=== PATIENT | female | born 1995 | race Caucasian/White ===

== ENCOUNTER → 2021-06-26 15:12 | Outpatient (CLI) | payer OTHER, BC, SELFPAY ==
--- NOTE | ~2021-06-26 | US_ITS ---
EXAMINATION: US OB /maternal detail DATE: 06/26/2021 15:56 INDICATION: anatomic survey. TECHNIQUE: Real-time ultrasound of the pelvis was performed. COMPARISON: None. FINDINGS: There is a single living fetus in breech presentation. The placenta is anterior, 6.9 cm from the cer vix. heart rate is 151 beats per minute (bpm). The amniotic fluid volume is subjectively normal . The following biometric data were obtained: Biparietal diameter (BPD): 4.8 cm; head circumference (HC): 18.7 cm; abdominal circumference (AC): 16 .1 cm; femur length (FL): 3.5 cm. These measurements are concordant. Estimated weight is 404 g +/- 61 g, which correlates with >97th percentile when 11/14/21 is used as estimated date of delivery. As single measurements, these parameters are each equal to the following estimated gestational ages w ith ranges of +/- 2 standard deviations: BPD: 20 weeks 3 days (18 weeks 5 days - 22 weeks 1 days). HC: 21 weeks 0 days (19 weeks 4 days - 22 weeks 3 days). AC: 21 weeks 2 days (19 weeks 1 days - 23 weeks 2 days). FL: 21 weeks 1 days (19 weeks 3 days - 23 weeks 0 days). estimated gestational age based solely on measurements from this exam is 21 weeks 0 days +/- 1 weeks 3 days. The cerebral ventricles, cerebellum, cisterna magna, nuchal fold, and visualized portions of the spin e are normal. The heart is normal. The diaphragm, stomach, kidneys, and bladder are normal. There are two umbilical arteries to yield a 3-vessel cord. The cord insertion is normal. IMPRESSION: 1. Single living fetus in breech presentation. 2. Large for gestational age. Estimated weight is 404 g +/- 61 g, which correlates with >97th percentile when 11/14/21 is used as estimated date of delivery. 3. Normal anatomic survey. Reviewed, dictated and finalized at location A. IMPRESSION: 1. Single living fetus in breech presentation. 2. Large for gestational age. Estimated weight is 404 g +/- 61 g, which correlates with >97th percentile when 11/14/21 is used as estimated date of deljoceline bui. 3. Normal anatomic survey.
== END ==
PROVIDERS: Visit Provider Obstetrics & Gynecology
DX: O36.60X0 Maternal care for excessive fetal growth, unspecified trimester, not applicable or unspecified (principal); Z3A.00 Weeks of gestation of pregnancy not specified
CPT/HCPCS: 76805

== ENCOUNTER → 2021-08-26 10:26 | Outpatient (CLI) | payer OTHER, BC, SELFPAY ==
--- NOTE | ~2021-08-26 | US_ITS ---
EXAMINATION: US OB follow up DATE: 08/26/2021 11:08 INDICATION: Large for gestational age, third trimester TECHNIQUE: Real-time ultrasound of the pelvis was performed. The interpreting radiologist was not pre sent for the study. COMPARISON: 06/26/2021 FINDINGS: There is a single living fetus in breech presentation. The placenta is anterior and 5.2 cm from the internal cervical os. cardiac activity and movement are noted. heart rate is 124 beats per minute (bpm). The amniotic fluid index is 14.9 cm which is normal. The following biometric data were obtained: Biparietal diameter (BPD): 7.2 cm; head circumference (HC): 27.3 cm; abdominal circumference (AC): 25 .7 cm; femur length (FL): 5.4 cm. These measurements are concordant. Estimated weight is 1402 g +/- 210 g, which correlates with the 29th percentile when 11/06/2021 is used as estimated date of delivery. As single measurements, these parameters are each equal to the following estimated gestational ages w ith ranges of +/- 2 standard deviations: BPD: 29 weeks 0 days ( 26 weeks 6 days - 31 weeks 1 days). HC: 29 weeks 6 days ( 27 weeks 6 days - 31 weeks 6 days). AC: 29 weeks 6 days ( 27 weeks 5 days - 32 weeks 0 days). FL: 28 weeks 6 days ( 26 weeks 6 days - 31 weeks 0 days). estimated gestational age based solely on measurements from this exam is 29 weeks 3 days +/- 2 weeks 0 days. IMPRESSION: 1. Single living fetus in breech presentation. 2. Estimated weight is 1402 g +/- 210 g, which correlates with the 29th percentile when 11/06/19 22 is used as estimated date of delivery. 3. Normal amniotic fluid index. Reviewed, dictated and finalized at location B. IMPRESSION: 1. Single living fetus in breech presentation. 2. Estimated weight is 1402 g +/- 210 g, which correlates with the 29th p ercentile when 11/06/2021 is used as estimated date of delivery. 3. Normal amniotic fluid index.
== END ==
PROVIDERS: Visit Provider Obstetrics & Gynecology
DX: O36.62X1 Maternal care for excessive fetal growth, second trimester, fetus 1 (principal); Z3A.29 29 weeks gestation of pregnancy
CPT/HCPCS: 76816

== ENCOUNTER 2021-10-16 17:45 | Outpatient (RCR) | payer OTHER, BC, SELFPAY ==
--- NOTE | ~2021-10-16 | US_ITS ---
EXAMINATION: US OB BPP wo non-stress DATE: 10/16/2021 18:48 INDICATION: Elevated blood pressures during third trimester TECHNIQUE: Real-time pelvic ultrasound was performed. The interpreting radiologist was not present fo r the study. COMPARISON: 08/26/21 FINDINGS: There is a single living fetus in vertex presentation. The placenta is anterior and not low-lying. F etal heart rate is 132 beats per minute (bpm). Biophysical profile performed by the technologist: breathing (30 sec sustained breathing in 30 minutes): 2 out of 2 movement (3 gross body movements in 30 minutes): 2 out of 2 tone (one episode of oqnsdqs-tufvmqzyi-rpswmbl limb movement): 2 out of 2 Amniotic fluid pocket (2 cm): 2 out of 2 Total score: 8 out of 8 IMPRESSION: 1. Single living fetus in vertex presentation with heart rate of 132 bpm. 2. Biophysical profile 8 out of 8. Reviewed, dictated and finalized at location H. ER
[2021-10-16 18:22] LABS: Basophils Absolute Auto 0.1 K/mm3 (0.0-0.1); Basophils Percent Auto 0.4 % (0.2-1.2); Eosinophils Absolute Auto 0.2 K/mm3 (0-0.3); Eosinophils Percent Auto 1.7 % (0-4.4); Hematocrit 32.4 % (37.0-47.0); Hemoglobin 10.3 g/dL (12.0-15.0); Immature Granulocyte Absolute 0.07 K/mm3 (0.00-0.031); Immature Granulocyte Percent A 0.6 % (0-0.5); Lymphocytes Absolute Auto 3.06 K/mm3 (0.9-3.2); Lymphocytes Percent Auto 26.9 % (18.3-44.2); Mean Corpuscular HGB Conc 31.8 g/dl (32-36); Mean Corpuscular Hemoglobin 27.8 pg (26-34); Mean Corpuscular Volume 87.3 fl (80-100); Mean Platelet Volume 9.9 fl (7.4-10.4); Monocytes Absolute Auto 0.9 K/mm3 (0.1-0.6); Monocytes Percent Auto 7.9 % (2.6-8.5); Neutrophils Absolute Auto 7.1 K/mm3 (1.3-6.7); Neutrophils Percent Auto 62.5 % (45.5-73.1); Platelet Count Result 252 k/mm3 (150-375); Red Blood Count 3.71 M/mm3 (4.2-5.4); Red Cell Distribution Width 14.7 % (11.5-14.5); White Blood Count 11.4 K/mm3 (4.5-10.0)
[2021-10-16 18:32] LABS: Alanine Aminotransferase 19 U/L (4-35); Albumin Level 3.4 g/dL (3.5-5.1); Alkaline Phosphatase 196 U/L (38-126); Anion Gap 4 mmol/L (8-16); Aspartate Amino Transferase 31 U/L (14-36); Bilirubin,Total 0.3 mg/dL (0.2-1.3); Blood Urea Nitrogen 9 mg/dL (7-17); Calcium 9.2 mg/dL (8.4-10.2); Carbon Dioxide 23 mmol/L (22-30); Chloride 104 mmol/L (98-107); Estimated Glomerular Filt Rate > 60; Glucose 100 mg/dL (65-110); Potassium 3.7 mmol/L (3.4-5.0); Sodium 131 mmol/L (137-145); Uric Acid 4.2 mg/dL (2.5-7.5)
[2021-10-16 19:24] LABS: Add Urine Microscopic? YES; Amorphous Sediment Urine Few; Appearance Urine Clear (Clear); Bacteria Urine 1+ /hpf; Bilirubin Urine Negative (Negative); Blood Urine 1+ (Negative); Color Urine Yellow (Yellow); Creatinine Urine 75.6 mg/dL; Glucose Urine UA Negative (Negative); Ketones Urine Trace mg/dL (Negative); Leukocyte Esterase Ur Trace LEU/UL (NEGATIVE); Mucus Urine Rare /lpf; Nitrate Urine Negative (Negative); Protein Urine Negative (Negative); Specific Grav Ur 1.011 (1.001-1.035); Squamous Epithelial Cell Urine Rare /hpf (Few); Total Protein Urine Random 19 mg/dL; Ur Ttl Prot Creatinine Ratio 0.25 mg/mg (0-0.20); Urobilinogen Urine Negative mg/dL (<2.0); WBC Urine 0-3 /hpf (0-3)
== END 2022-01-14 23:59 | disposition home or self-care (01) ==
LOC: ANHOBOP 17:45
PROVIDERS: Visit Provider Obstetrics & Gynecology
DX: O26.899 Other specified pregnancy related conditions, unspecified trimester (principal); R03.0 Elevated blood-pressure reading, without diagnosis of hypertension; Z3A.00 Weeks of gestation of pregnancy not specified
CPT/HCPCS: 36415; 76819; 80053; 81001; 82570; 84156; 84550; 85025; 87086

== ENCOUNTER 2021-11-03 16:56 | Inpatient (IN) | payer OTHER, BC, SELFPAY ==
[2021-10-16 18:53] VITALS: BP 126/73; PULSE 72
[2021-10-16 19:03] VITALS: BP 128/73; PULSE 77
[2021-10-16 19:16] VITALS: BP 112/66; PULSE 82
[2021-10-16 19:31] VITALS: BP 111/57; PULSE 78
[2021-10-16 19:46] VITALS: BP 124/74; PULSE 79
[2021-11-03] VITALS (15 sets, daily range): BP systolic 121–152; BP diastolic 79–92; PULSE 90–110; RESP 16; TEMP 36.9; BMI 36.8
--- NOTE | 2021-11-03 17:36 | LDADM ---
This patient, Yahaira Vega, was admitted to Labor/Delivery/Recovery 107 on 11/03/21 at 16:56. Plans for labor, pain management and were discussed with patient. Patient/family oriented to hospital policies and general routines including ID bracelet, bed and alarms, visiting hours, pain management, procedures, bathroom and other care routines, personal items, smoking policy, room service/diet and guest tray routines, infant security routines, and visiting hours. Patient/Family are encouraged to report perceived risks to care and to ask questions if they do not understand what they are told or what they should do. See OBIX for further documentation.
[2021-11-03 17:37] LABS: Basophils Absolute Auto 0.1 K/mm3 (0.0-0.1); Basophils Percent Auto 0.4 % (0.2-1.2); Eosinophils Absolute Auto 0.2 K/mm3 (0-0.3); Eosinophils Percent Auto 1.7 % (0-4.4); Hematocrit 33.7 % (37.0-47.0); Hemoglobin 10.7 g/dL (12.0-15.0); Immature Granulocyte Absolute 0.11 K/mm3 (0.00-0.031); Lymphocytes Absolute Auto 2.82 K/mm3 (0.9-3.2); Lymphocytes Percent Auto 24.4 % (18.3-44.2); Mean Corpuscular HGB Conc 31.8 g/dl (32-36); Mean Corpuscular Volume 85.1 fl (80-100); Mean Platelet Volume 10.2 fl (7.4-10.4); Monocytes Absolute Auto 1.1 K/mm3 (0.1-0.6); Monocytes Percent Auto 9.2 % (2.6-8.5); Neutrophils Absolute Auto 7.3 K/mm3 (1.3-6.7); Neutrophils Percent Auto 63.3 % (45.5-73.1); Platelet Count Result 270 k/mm3 (150-375); Red Blood Count 3.96 M/mm3 (4.2-5.4); White Blood Count 11.6 K/mm3 (4.5-10.0)
[2021-11-03] MEDS: DINOPROSTONE 10 MG VAG INSERT VAGINAL (18:03)
[2021-11-04] VITALS (208 sets, daily range): BP systolic 67–145; BP diastolic 31–100; PULSE 29–197; RESP 16; TEMP 36.6–37.6; O2SAT 90–100
[2021-11-04] MEDS: ACETAMINOPHEN 500 MG TABLET 1000 MG PO (01:53)
[2021-11-04] MEDS: FAMOTIDINE 20 MG TABLET PO ×2 (01:53→23:34)
[2021-11-04] MEDS: OXYTOCIN 30 UNITS/NS 500 ML 30 UNITS/500 ML BAG 6 UNITS IV CONT (06:51)
[2021-11-04] MEDS: LACTATED RINGERS 1,000 ML 125 ML IV CONT ×2 (06:51→13:51)
--- NOTE | 2021-11-04 07:36 | PM.IMHP ---
H&P: HPI History of Present Illness Date/Time: 11/04/21 07:22 Yahaira is a 25yo @39.1wks who was admitted for elective induction of labor. She reports no VB or LOF. Has been having irregular contractions. She has had regular care. Her is complicated by: - Rubella, varicella, CMV, parvo non-immune - Mild anemia on iron daily - Anxiety and depression - Headaches - Mild intermittent asthma Chief Complaint: induction of labor Review of Systems Review of Systems: All systems reviewed & are unremarkable except as noted in HPI and below (HPI) [facility] Family History Family History Grandparent Diabetes mellitus Hypertension Social History Social History Smoking status: Never smoker Substance use: never Spiritual care concerns: No Meds Home Medications and Allergies Home Medications Medication Instructions Recorded Confirmed Type PNV cmb#95-ferrous fumarate-FA 1 tablet PO HS 11/03/21 11/03/21 History [] doxylamine succinate [Wal-Randy 25 mg PO HS 11/03/21 11/03/21 History (doxylamine)] famotidine [Pepcid] 20 mg PO HS 11/03/21 11/03/21 History Allergies Allergy/AdvReac Type Severity Reaction Status Date / Time morphine Allergy Rash Verified 10/14/21 15:40 Vital Signs Vital Signs - 24 hr 11/03/21 17:21 11/03/21 17:32 11/03/21 17:46 Temperature Pulse Rate 105 H 110 H 103 H Respiratory Rate Blood Pressure 132/86 123/86 121/81 Pulse Oximetry 11/03/21 18:05 11/03/21 18:15 11/03/21 18:16 Temperature 98.4 F Pulse Rate 104 H 110 H Respiratory Rate Blood Pressure 152/92 H Pulse Oximetry 11/03/21 18:19 11/03/21 18:31 11/03/21 18:46 Temperature Pulse Rate 108 H 99 101 H Respiratory Rate Blood Pressure 132/82 127/79 130/85 Pulse Oximetry 11/03/21 19:01 11/03/21 19:16 11/03/21 19:31 Temperature Pulse Rate 96 96 99 Respiratory Rate Blood Pressure 123/82 129/80 126/89 Pulse Oximetry 11/03/21 19:46 11/03/21 20:01 11/03/21 20:02 Temperature 98.4 F Pulse Rate 104 H 90 Respiratory Rate 16 Blood Pressure 128/87 136/86 Pulse Oximetry 11/04/21 00:03 11/04/21 00:04 11/04/21 00:08 Temperature Pulse Rate 91 Respiratory Rate Blood Pressure 139/79 Pulse Oximetry 99 98 11/04/21 00:13 11/04/21 00:30 11/04/21 00:35 Temperature Pulse Rate Respiratory Rate Blood Pressure Pulse Oximetry 99 99 99 11/04/21 00:40 11/04/21 00:42 11/04/21 00:47 Temperature Pulse Rate Respiratory Rate Blood Pressure Pulse Oximetry 99 98 99 11/04/21 00:52 11/04/21 00:57 11/04/21 01:02 Temperature Pulse Rate Respiratory Rate Blood Pressure Pulse Oximetry 99 98 98 11/04/21 01:07 11/04/21 01:12 11/04/21 01:17 Temperature Pulse Rate Respiratory Rate Blood Pressure Pulse Oximetry 99 98 98 11/04/21 01:22 11/04/21 01:27 11/04/21 01:32 Temperature Pulse Rate Respiratory Rate Blood Pressure Pulse Oximetry 99 98 99 11/04/21 01:34 11/04/21 01:37 11/04/21 01:38 Temperature Pulse Rate 81 Respiratory Rate Blood Pressure 99/59 L Pulse Oximetry 98 100 99 11/04/21 01:41 11/04/21 01:43 11/04/21 01:44 Temperature Pulse Rate 83 Respiratory Rate Blood Pressure 112/61 Pulse Oximetry 99 98 11/04/21 01:49 11/04/21 01:51 11/04/21 01:53 Temperature 97.9 F Pulse Rate 85 Respiratory Rate Blood Pressure 106/60 Pulse Oximetry 98 11/04/21 01:54 11/04/21 01:59 11/04/21 02:01 Temperature Pulse Rate 84 Respiratory Rate Blood Pressure 128/90 Pulse Oximetry 99 100 11/04/21 02:04 11/04/21 02:09 11/04/21 02:11 Temperature Pulse Rate 101 H Respiratory Rate Blood Pressure 119/86 Pulse Oximetry 100 99 11/04/21 02:14 11/04/21 02:19 11/04/21 02:2
--- NOTE | 2021-11-04 07:36 | WPDHPUPDATE1 ---
History and Physical Update Update Date/Time: 11/04/21 07:36 History and Physical has been reviewed, including an updated exam of the patient. There are NO changes in the patient's condition. Risks, benefits, and alternatives have been discussed and questions answered. Patient agrees to proceed with procedure.
[2021-11-04] MEDS: ONDANSETRON INJ 4 MG/2 ML VIAL IV PUSH (07:38)
--- NOTE | 2021-11-04 10:34 | WPDANESEPP ---
Anes - Eval Pre Procedure Date/Time: 11/04/21 10:34 Pre Op Diagnosis: Induction of Labor Patient Data Age: 25 Gender: F Height: 1.83 m Weight: 123 kg Last Vital Signs Temp 36.6 C 11/04/21 08:30 Pulse 99 11/04/21 07:51 Resp 16 11/03/21 20:02 BP 111/74 11/04/21 07:51 Pulse Ox 99 11/04/21 07:54 Allergies Allergy/AdvReac Type Severity Reaction Status Date / Time morphine Allergy Rash Verified 10/14/21 15:40 Home Medications Medication Instructions Recorded Confirmed Type PNV cmb#95-ferrous fumarate-FA 1 tablet PO HS 11/03/21 11/03/21 History [] doxylamine succinate [Wal-Randy 25 mg PO HS 11/03/21 11/03/21 History (doxylamine)] famotidine [Pepcid] 20 mg PO HS 11/03/21 11/03/21 History Laboratory Tests 11/03/21 11/03/21 11/03/21 17:21 17:21 17:21 WBC 11.6 K/mm3 H K/mm3 (4.5-10.0) RBC 3.96 M/mm3 L M/mm3 (4.2-5.4) Hgb 10.7 g/dL L g/dL (12.0-15.0) Hct 33.7 % L % (37.0-47.0) MCV 85.1 fl fl (80-100) MCH 27.0 pg pg (26-34) MCHC 31.8 g/dl L g/dl (32-36) RDW 15.0 % H % (11.5-14.5) Plt Count 270 k/mm3 k/mm3 (150-375) MPV 10.2 fl fl (7.4-10.4) Immature Gran % (Auto) 1.0 % H % (0-0.5) Neut % (Auto) 63.3 % % (45.5-73.1) Lymph % (Auto) 24.4 % % (18.3-44.2) [place] % (Auto) 9.2 % H % (2.6-8.5) Eos % (Auto) 1.7 % % (0-4.4) Baso % (Auto) 0.4 % % (0.2-1.2) Lymph # (Auto) 2.82 K/mm3 K/mm3 (0.9-3.2) [place] # (Auto) 1.1 K/mm3 H K/mm3 (0.1-0.6) Eos # (Auto) 0.2 K/mm3 K/mm3 (0-0.3) Baso # (Auto) 0.1 K/mm3 K/mm3 (0.0-0.1) Abs Immat Gran (auto) 0.11 K/mm3 H K/mm3 (0.00-0.031) Absolute Neuts (auto) 7.3 K/mm3 H K/mm3 (1.3-6.7) Absolute Nucleated RBC 0.0 K/mm3 K/mm3 (0.0-0.012) Nucleated RBC % 0.0 % % (0.0-0.2) RPR Pending Blood Type O Positive Antibody Screen Negative Patient hx anesthesia problems: none Family hx anesthesia problems: none Results Review: All pre-operative results and documents have been reviewed as part of the pre-operative evaluation. [facility] Past Medical History Medical History (Updated 11/04/21 @ 10:35 by Asuncion Lemus CRNA) Anxiety and depression Obese Family History Family History Grandparent Diabetes mellitus Hypertension Social History Social History Smoking status: Never smoker Substance use: never Spiritual care concerns: No Exam Day of Procedure 11/04/21 10:34 Patient weight: obese Heart: regular rate and rhythm Airway: Mallampati scale
[2021-11-04 11:22] LABS: Rapid Plasma Reagin Non-Reactive (NonReactive)
[2021-11-04] MEDS: fentaNYL CITRATE INJ (*CRX) 100 MCG/2 ML VIAL IV PUSH (13:01)
[2021-11-04] MEDS: miSOPROStol 200 MCG TABLET 800 MCG (15:53)
[2021-11-04] MEDS: OXYTOCIN 30 UNITS/NS 500 ML 30 UNITS/500 ML BAG 125 UNITS IV CONT (15:55)
--- NOTE | 2021-11-04 16:14 | P.PCNOB_ITS ---
OB - Delivery Note Procedure Delivery date: 11/04/21 events: Labor Induction Induction method: per cervidil protocol Delivery augmentation: pitocin Delivery monitor: external FHT and external uterine Route of delivery: Laceration Description: Perineal - 2nd Degree and Cervical Delivery repair: vicryl Specimen: No Quantitative Blood Loss (ml): 400 Anesthesia type: Epidural Disposition: floor Baby Date of : 11/04/21 Time of : 15:27 Weeks of gestation at delivery: 39 (.1) gender: Male Weight (pounds): 9 Weight (ounces): 10 presentation: vertex position: Right Occiput Anterior Placenta delivery description: Expressed cord vessel description: 3 Vessels and Delayed Cord Clamping score one minute: 8 score five minutes: 9 Narrative: Yahaira rapidly progressed from 3 cm to completely dilated and 2-1/2 hours. She endorsed significant pressure and pain and desired to push. She pushed for approximately 15 minutes with good maternal effort and delivered the head over intact perineum. She easily delivered the 's shoulders and body without complications. The infant was immediately placed skin to skin and with stimulation he cried. Delayed cord clamping was performed. The umbilical cord was then clamped and cut. A segment of the cord was collected for cord gases. The remaining cord blood was collected for typing. With Pitocin running and gentle downward traction on the cord, the placenta delivered without co mplications. Bimanual massage was performed and she was noted to be slightly atonic with bleeding. A uterine sweep revealed no retained products of conception. The cervix, vagina, perineum were examined and a small cervical laceration at 8:00 o'clock (2cm) was noted, as well as a second-degree perineal laceration. The cervical laceration was repaired using 2-0 Vicryl in a running, locking fashion and good hemostasis was noted. The second-degree perineal laceration was repaired in the normal fashion using 2-0 Vicryl and good hemostasis was then noted. A bimanual massage was once again performed and small amounts of clots were removed from the uterus. With the massage the patient was noted to have good uterine tone and was noted to be voiding. A straight catheterization was then performed and misoprostol 800 mcg was placed rectally. She was stable with minimal bleeding. Sponge, lap, instrument, and needle counts were correct at the end the procedure. Mom and baby were left bonding in the birthing suite in a stable condition. [facility] Delivery Billing Delivery Delivery: Delivery Charge
[2021-11-04] MEDS: BENZOCAINE 20% AER SPR (*SP) 56 GM CAN 1 SPRAY TOPICAL (17:47)
[2021-11-04] MEDS: WITCH HAZEL 40 PADS 1 PAD TOPICAL (17:47)
[2021-11-04] MEDS: IBUPROFEN 600 MG TABLET PO (19:04)
[2021-11-04] MEDS: ACETAMINOPHEN 325 MG TABLET 650 MG PO (19:05)
--- NOTE | 2021-11-04 21:56 | OBPPTRN ---
11/04/2021 at 1858. Patient transferred to post room #283 via wheelchair. Support person present. Oriented to unit, room, information board, rooming in, admission packet and security measures. Patient verbalizes understanding.
[2021-11-04] MEDS: HYDROcodone/acetaminophen (*CRX) 5-325 MG TABLET 1 TAB PO (23:05)
[2021-11-05 03:15] VITALS: BP 105/57; PULSE 77; RESP 16; TEMP 36.8; O2SAT 99
[2021-11-05] MEDS: IBUPROFEN 600 MG TABLET PO (03:23)
[2021-11-05] MEDS: HYDROcodone/acetaminophen (*CRX) 5-325 MG TABLET 1 TAB PO (03:23)
[2021-11-05 05:47] LABS: Hematocrit 27.7 % (37.0-47.0); Hemoglobin 8.7 g/dL (12.0-15.0)
--- NOTE | 2021-11-05 07:35 | WPDANLDPN2 ---
Anes-Prog Note L&D Date/Time: 11/05/21 07:35 Comfortable throughout: labor Neuraxial method: epidural Epidural/Spinal procedure site: clean & non-tender Neuro status: Neuro function grossly intact. Cardiovascular status: normal Respiratory status: normal Airway patency: baseline Mental status: baseline Post-Op hydration status: normal Vital Signs: Last Vital Signs Temp 98.3 F 11/05/21 03:15 Pulse 77 11/05/21 03:15 Resp 16 11/05/21 03:15 BP 105/57 L 11/05/21 03:15 Pulse Ox 99 11/05/21 03:15 Pain score (VAS): 0-1 I/O: Intake & Output 11/04/21 11/04/21 11/05/21 15:59 23:59 07:59 Intake Total 1500 Output Total 400 Balance 1100 Post-procedural complaints: none Patient feedback: Patient satisfied with anesthetic care.
--- NOTE | 2021-11-05 07:36 | PM.OBPNVD ---
OB - PN: Subj Subjective Date/time seen: 11/05/21 07:05 Narrative: PPD#1 Yahaira reports doing well today. Her bleeding is starting to get neon technician. Her pain is now controlled with the norco, but she is having hemorrhoidal pain. She is tolerating regular diet, voiding, passing gas, and ambulating without issues. She is breast feeding. She would like her son circumcised. She would like to go home tomorrow. OB - PN: Obj Data Labs CBC & Chem 7: 11/05/21 05:13 Labs: Laboratory Results - last 24 hr 11/03/21 11/05/21 17:21 05:13 Hgb 8.7 L Hct 27.7 L RPR Non-reactive OB - PN A/P Assessment and Plan (1) Normal vaginal delivery of first : Code(s): O80 - Encounter for full-term uncomplicated delivery Status: Acute Plan day: 1 Plan: routine care and discharge home (tomorrow) Comments: - Pelvic rest; take meds as prescribed - ER return precautions: fever, n/v/abd pain, bleeding, HTN Time Spent With Patient Time: Total time spent is greater than 50% in coordination of care (as documented) at patient's floor/unit and/or counseling patient: Review of Systems Constitutional: Constitutional: Denies chills, Denies fever(s) and Denies headache(s) Eyes: Eyes: Denies change in vision ENT: Denies dizziness and Denies headache(s) Cardiovascular: Cardiovascular: Denies chest pain, Denies palpitations and Denies dyspnea Respiratory: Respiratory: Denies cough and Denies dyspnea Gastrointestinal: Gastrointestinal: Denies nausea and Denies vomiting Neurologic: Denies dizziness and Denies headache(s) Endocrine: Endocrine: Denies palpitations Exam Const: General: cooperative, comfortable and no acute distress Orientation/consciousness: patient oriented x3 Resp: Effort & Inspection: normal respiratory effort Auscultation: clear to auscultation bilaterally Cardio: Rate: regular rate GI: Inspection: non-distended GI Palp: No abdominal tenderness and Yes Soft to palpation Auscultation: normal bowel sounds : Other: fundus firm Skin: General skin exam: normal color Neuro: General: patient oriented x3 Extrem: General: normal to inspection Psych: Appearance: grossly normal Affect: normal affect Attitude: cooperative
--- NOTE | 2021-11-05 07:36 | WPDANESPN ---
Anes - Prog Note Post-Op Date/Time: 11/05/21 07:36 Cardiovascular status: normal Respiratory status: normal Airway patency: baseline Mental status: baseline Post-Op hydration status: normal Vital Signs: Last Vital Signs Temp 98.3 F 11/05/21 03:15 Pulse 77 11/05/21 03:15 Resp 16 11/05/21 03:15 BP 105/57 L 11/05/21 03:15 Pulse Ox 99 11/05/21 03:15 Pain Score (VAS): 0-1 I/O: Intake & Output 11/04/21 11/04/21 11/05/21 15:59 23:59 07:59 Intake Total 1500 Output Total 400 Balance 1100 Laboratory Tests 11/05/21 05:13 11/03/21 11/05/21 17:21 05:13 Hgb 8.7 L Hct 27.7 L RPR Non-reactive Post-procedural complaints: none Patient Feedback: Patient satisfied with anesthetic care.
[2021-11-05 07:40] VITALS: BP 100/60; PULSE 72; RESP 18; TEMP 37.2; O2SAT 100
[2021-11-05] MEDS: Acetaminophen/HYDROcodone ELIXIR (*CRX) 7.5 MG/15 ML UDC 5 MG PO ×2 (09:27→17:32)
[2021-11-05] MEDS: polyethylene glycoL 3350 17 GM POWD.PACK PO (10:38)
[2021-11-05] MEDS: FERROUS SULFATE LIQUID 325 MG/7.4 ML ELIXIR PO (10:38)
[2021-11-05] MEDS: IBUPROFEN SUSPENSION 200 MG/10 ML UDC 600 MG PO ×2 (10:38→17:31)
[2021-11-05] MEDS: MULTIVITS W-FE,MIN CHEWABLE TABLET 1 TABLET PO (10:38)
[2021-11-05 12:07] VITALS: BP 126/71; PULSE 89; RESP 18; TEMP 36.8; O2SAT 98
--- NOTE | 2021-11-05 13:19 | PC.NURSE ---
1120 - Consulted with patient, reviewed infant feeding cues, frequencies, duration of feedings, feeding elimination flow sheet, and signs of adequate intake. Demonstrated stimulation techniques to wake for feeding. Assisted with to breast. Reviewed positioning/alignment, holding breast and asymmetrical latch on. was able to latch correctly. Infant nursed eagerly, with steady draws and occasional swallowing noted. Reviewed signs of a correct latch, effective nursing and suck swallow ratio. Infant was able to maintain latch without discomfort to mother on the right side in football position. Nipple care reviewed. Instructed mother to call out for RN assistance if she is unable to latch infant for feeding or she has discomfort with nursing. Instructed feeding should be initiated three hours from start of last feeding or if feeding cues are noted before. Mother voiced understanding of information shared. 1300 - Mother denies any nipple discomfort, is feeding as required and waking to feed if needed. is currently meeting outcomes for weight, output, jaundice and feeding frequencies. Mother states she does not require feeding assist/education at this time. Reviewed resources in the Mom/Baby guide. Instructed mother to call out for future feedings if assistance is needed.
--- NOTE | 2021-11-05 15:07 | PC.NURSE ---
late entry 0955 - Consulted with patient, reviewed feeding cues, frequencies, duration of feedings, feeding elimination flow sheet, and signs of adequate intake. Demonstrated stimulation techniques to wake infant for feeding and baby placed skin to skin. Nipple care reviewed. Instructed mother to call out for RN assistance if she is unable to latch infant for feeding or she has discomfort with nursing. Instructed feeding should be initiated three hours from start of last feeding or if feeding cues are noted before. Mother voiced understanding of information shared.
[2021-11-05 19:52] VITALS: BP 131/73; PULSE 80; RESP 18; TEMP 36.4; O2SAT 99
[2021-11-06] MEDS: Acetaminophen/HYDROcodone ELIXIR (*CRX) 7.5 MG/15 ML UDC 5 MG PO (03:46)
[2021-11-06] MEDS: IBUPROFEN SUSPENSION 200 MG/10 ML UDC 600 MG PO ×2 (03:46→09:30)
--- NOTE | 2021-11-06 07:55 | P.DS_ITS ---
DS: Admitting Diagnosis Discharge Date 11/06/21 Admitting Diagnosis induction of labor DS: Discharge Diagnosis Discharge Diagnosis (1) Normal vaginal delivery of first : Code(s): O80 - Encounter for full-term uncomplicated delivery Status: Acute (2) Second degree perineal laceration: Code(s): O70.1 - Second degree perineal laceration during delivery Status: Acute OB - DS: Summary OB Procedures : NST and Ultrasound OB Procedures Intrapartum: Spontaneous Vag Delivery OB Procedures: : Rubella lg Peripartum Data Infant Delivery Method: Natural Vaginal Laceration Description: Perineal - 2nd Degree and Cervical complications: none [place] 1: Gender: Male Disposition of : home Status at Discharge Functional status at discharge: independent ambulation Overall status at discharge: patient is back to baseline Time Spent with Patient Time attestation: Total time spent providing and/or coordinating discharge services: Exam Const: General: cooperative, comfortable and no acute distress Nutritional Appearance: obese Orientation/consciousness: patient oriented x3 Resp: Effort & Inspection: normal respiratory effort Auscultation: clear to auscultation bilaterally Cardio: Rate: regular rate GI: Inspection: non-distended GI Palp: No abdominal tenderness and Yes Soft to palpation Auscultation: normal bowel sounds : Other: fundus firm Skin: General skin exam: normal color Neuro: General: patient oriented x3 Extrem: General: normal to inspection Psych: Appearance: grossly normal Affect: normal affect Attitude: cooperative Discharge Plan Discharge Attending physician on discharge: Vashti Fried Discharging Clinician: Vashti Fried Anticipated Discharge Date/Time: 11/06/21 15:00 Patient Disposition: Home, Self-Care Activity: may shower, may drive after 2 weeks and pelvic rest Diet: regular Patient Instructions: Antibiotic Form Stand Alone Forms: General Discharge Information Follow-up/Referrals: Vashti Fried MD [Physician] - 4 Weeks Discharge Medications: New acetaminophen [Nortemp] 160 mg/5 mL Suspension 650 mg PO Q6H PRN (Reason: Mild Pain (1-3) Or Headache) 10 Days Qty: 800 RF: 0 hydrocodone-acetaminophen 7.5-325 mg/15 mL Solution 5 mg PO Q4-6H PRN (Reason: Pain Rated 4-6) 3 Days Qty: 15 RF: 0 polyethylene glycol 3350 [Miralax] 17 gram Powder In Packet 17 g PO QAM 30 Days Qty: 30 RF: 0 ibuprofen 100 mg/5 mL Suspension 600 mg PO Q6H PRN (Reason: Cramping) 10 Days Qty: 1200 RF: 0 ferrous sulfate 220 mg (44 mg iron)/5 mL Elixir 325 mg PO BID 30 Days Qty: 443.184 RF: 0 Continued PNV cmb#95-ferrous fumarate-FA [] 28 mg iron- 800 mcg Tablet 1 tablet PO HS RF: 0 Discontinued famotidine [Pepcid] 20 mg Tablet 20 mg PO HS RF: 0 Wal-Randy (doxylamine) 25 mg tablet 25 mg PO HS RF: 0 Date of admission: 11/03/21 16:56 Primary Care Provider: PHYSICIAN,CERTIFIED REAL ESTATE APPRAISER Admitting Provider: Vashti Fried Attending physician on admission: Vashti Fried Condition: Stable
[2021-11-06 08:40] VITALS: BP 119/75; PULSE 62; RESP 16; TEMP 36.6; O2SAT 95
[2021-11-06] MEDS: FERROUS SULFATE LIQUID 325 MG/7.4 ML ELIXIR PO (09:30)
[2021-11-06] MEDS: MULTIVITS W-FE,MIN CHEWABLE TABLET 1 TABLET PO (09:30)
[2021-11-06 10:30] VITALS: PULSE 62; RESP 16; O2SAT 95
[2021-11-06] MEDS: BENZOCAINE 20% AER SPR (*SP) 56 GM CAN 1 SPRAY TOPICAL (11:29)
[2021-11-06] MEDS: DIBUCAINE 1% OINTMENT 30 GM TUBE 1 APPLIC TOPICAL (11:29)
[2021-11-06] MEDS: WITCH HAZEL 40 PADS 1 PAD TOPICAL (11:29)
[2021-11-06] MEDS: polyethylene glycoL 3350 17 GM POWD.PACK PO (11:30)
[2021-11-06] MEDS: MEASLES,MUMPS,RUBELLA VACCINE 0.5 ML VIAL SUB-Q (11:49)
--- NOTE | 2021-11-06 12:10 | PC.NURSE ---
Patient was given the opportunity to view the discharge video Mother & Baby Care, The First Two Weeks and to ask questions. Patient declined viewing the video and has been given the mother/baby guide for home reference.Pt states she will watch video at home. I encouraged her to do so.
--- NOTE | 2021-11-06 12:29 | PC.NURSE ---
0815 - Consulted with patient, reviewed infant feeding cues, frequencies, duration of feedings, feeding elimination flow sheet, and signs of adequate intake. Demonstrated stimulation techniques to wake for feeding. Assisted with to breast. Reviewed positioning/alignment, holding breast and asymmetrical latch on. was able to latch correctly. Infant nursed eagerly, with steady draws and occasional swallowing noted. Reviewed signs of a correct latch, effective nursing and suck swallow ratio. Infant was able to maintain latch without discomfort to mother. Nipple care reviewed. Mother verbalizes she is able to independently latch infant with appropriate positioning/alignment. She denies any nipple discomfort, is feeding as required and waking infant to feed if needed. has had 8-12 effective feedings in the past 24 hours, and is currently meeting outcomes for weight, output, jaundice and feeding frequencies. Mother states she feels confident to continue effective at home. Reviewed transition to breast milk, signs of adequate intake, and engorgement/relief. Instructed to call ICP if intake/output less than required. Reviewed community resources on the [facility] website and in the Mom/Baby guide. Information on outpatient services provided. Mother has no further questions at this time. Instructed mother to call out for RN assistance if she is unable to latch for feeding or she has discomfort with nursing. Instructed feeding should be initiated three hours from start of last feeding or if feeding cues are noted before. Mother voiced understanding of information shared.
[2021-11-07 10:41] VITALS: BP 115/80; PULSE 83; RESP 20; TEMP 37.1; O2SAT 100
== END 2021-11-06 12:43 | disposition home or self-care (01) | DRG 807 ==
LOC: ANHLDR 17:02 → ANHOB2 11-04 20:49
PROVIDERS: Admitting Provider Obstetrics & Gynecology; Visit Provider Obstetrics & Gynecology
DX: O99.02 Anemia complicating childbirth (principal); Z37.0 Single live birth; D64.9 Anemia, unspecified; O99.344 Other mental disorders complicating childbirth; F41.9 Anxiety disorder, unspecified; F32.A Depression, unspecified; O70.1 Second degree perineal laceration during delivery; Z3A.39 39 weeks gestation of pregnancy
CPT/HCPCS: 36415; 85014; 85018; 85025; 86592; 86850; 86900; 86901; 90710; A9270; J2405; J2590; J2795; J3010; J7120